=== PATIENT | male | born 1975 | race African-American/Black ===

== ENCOUNTER 2020-07-08 15:39 | Emergency (ER) | payer MEDICAID ==
[~2020-07-08] VITALS: Ht 180.3 cm; Wt 87.0 kg
[2020-07-08] MEDS ORDERED: HYDROCODONE/ACETAMINOPHEN 10/325MG TABLET PO ONE (17:15)
[2020-07-08] MEDS ORDERED: HYDR-4346 MT (18:57)
[2020-07-08] MEDS ORDERED: IBUP-2029 MT (18:57)
[2020-07-08] MEDS ORDERED: HYDROCODONE/ACETAMINOPHEN 5/325MG TABLET PO ONE (19:00)
[2020-07-08 19:04] VITALS: BP 132/87
== END 2020-07-08 19:11 | disposition home or self-care (01) ==
LOC: ER 15:39
DX: S43.101A Unspecified dislocation of right acromioclavicular joint, initial encounter (principal); F17.200 Nicotine dependence, unspecified, uncomplicated; Z79.899 Other long term (current) drug therapy; Y04.0XXA Assault by unarmed brawl or fight, initial encounter; Y93.89 Activity, other specified; Y92.89 Other specified places as the place of occurrence of the external cause; Y99.8 Other external cause status
CPT/HCPCS: 73000; 73030; 99284; A4565